=== PATIENT | female | born 1955 | race Caucasian/White ===

== ENCOUNTER 2020-05-19 06:09 | Inpatient (IN) | payer OTHER ==
[~2020-05-19] VITALS: Ht 165.1 cm; Wt 53.8 kg
[2020-05-19 06:22] VITALS: BP 125/72
[2020-05-19 07:03] LABS: CALCIUM 9.4 mg/dL (8.5-10.1); CARBON DIOXIDE 28.5 mmol/L (21-32); CHLORIDE SERUM 109 mmol/L (98-107); CREATININE SERUM 0.7 mg/dL (0.6-1.0); GFR1 > 60 mL/min; GLUCOSE SERUM 90 mg/dL (74-106); SODIUM SERUM 144 mmol/L (136-145)
[2020-05-19] MEDS ORDERED: PHARMASSURE VI500 MG PO (10:26)
[2020-05-19] MEDS ORDERED: D-10001 TAB PO (10:27)
[2020-05-19] MEDS ORDERED: ZINC50 M4 PO (10:27)
[2020-05-19 14:24] VITALS: BP 112/41
[2020-05-19 14:34] VITALS: Ht 165.1 cm; Wt 53.8 kg
[2020-05-19 15:30] VITALS: BP 105/44
[2020-05-19 16:40] VITALS: BP 124/35
[2020-05-19 17:30] VITALS: BP 113/42
[2020-05-19 19:28] VITALS: BP 108/40
[2020-05-20 04:46] VITALS: BP 81/25
[2020-05-20 07:35] LABS: BASOPHIL % 0.3 % (0-2); PLATELET COUNT 135 x10^3mcL (130-400)
[2020-05-20 07:36] LABS: CALCIUM 8.8 mg/dL (8.5-10.1); CARBON DIOXIDE 30.3 mmol/L (21-32); CHLORIDE SERUM 105 mmol/L (98-107); CREATININE SERUM 0.9 mg/dL (0.6-1.0); GFR1 > 60 mL/min; GLUCOSE SERUM 125 mg/dL (74-106); POTASSIUM SERUM 4.7 mmol/L (3.5-5.1); SODIUM SERUM 138 mmol/L (136-145)
[2020-05-20 07:37] LABS: RED CELL DISTRIBUTION WIDTH 14.8 % (11.5-14.5)
[2020-05-20 08:30] VITALS: BP 93/22
[2020-05-20 12:21] VITALS: BP 113/37
[2020-05-20 16:14] VITALS: BP 134/88
[2020-05-20 21:00] VITALS: BP 97/34
[2020-05-20 23:28] VITALS: BP 97/38
[2020-05-21 00:44] LABS: BASOPHIL % 0.1 % (0-2); PLATELET COUNT 131 x10^3mcL (130-400)
[2020-05-21 00:48] LABS: RED CELL DISTRIBUTION WIDTH 14.9 % (11.5-14.5)
[2020-05-21 02:07] VITALS: BP 147/42
[2020-05-21 05:44] VITALS: BP 114/37
[2020-05-21 07:15] LABS: BASOPHIL % 0.3 % (0-2); PLATELET COUNT 139 x10^3mcL (130-400)
[2020-05-21 07:19] LABS: CALCIUM 8.3 mg/dL (8.5-10.1); CARBON DIOXIDE 31.1 mmol/L (21-32); CHLORIDE SERUM 112 mmol/L (98-107); CREATININE SERUM 0.7 mg/dL (0.6-1.0); GFR1 > 60 mL/min; GLUCOSE SERUM 90 mg/dL (74-106); POTASSIUM SERUM 3.8 mmol/L (3.5-5.1); SODIUM SERUM 145 mmol/L (136-145)
[2020-05-21 07:42] LABS: RED CELL DISTRIBUTION WIDTH 14.8 % (11.5-14.5)
[2020-05-21 08:26] VITALS: BP 134/41
[2020-05-21 11:55] VITALS: BP 108/40
[2020-05-21 17:15] VITALS: BP 106/40
[2020-05-21 20:30] VITALS: BP 112/55
[2020-05-22 05:38] VITALS: BP 124/48
[2020-05-22 06:39] LABS: BASOPHIL % 0.5 % (0-2); PLATELET COUNT 147 x10^3mcL (130-400)
[2020-05-22 06:45] LABS: CALCIUM 8.5 mg/dL (8.5-10.1); CARBON DIOXIDE 31.1 mmol/L (21-32); CHLORIDE SERUM 109 mmol/L (98-107); CREATININE SERUM 0.7 mg/dL (0.6-1.0); GFR1 > 60 mL/min; GLUCOSE SERUM 83 mg/dL (74-106); POTASSIUM SERUM 3.8 mmol/L (3.5-5.1); SODIUM SERUM 144 mmol/L (136-145)
[2020-05-22 07:16] LABS: RED CELL DISTRIBUTION WIDTH 15.2 % (11.5-14.5)
[2020-05-22 07:55] VITALS: BP 120/51
[2020-05-22 12:31] VITALS: BP 101/43
[2020-05-22 17:01] VITALS: BP 101/43
== END 2020-05-22 18:50 | disposition home or self-care (01) | DRG 301 ==
LOC: DS 06:09 → MU 07:30 → EDSTATUS 07:30 → DS 07:30 → DU 10:38
PROVIDERS: Internal Medicine; ADMIT Orthopaedic Surgery; ATTEND Orthopaedic Surgery
PROC: 0SRB03Z Replacement of Left Hip Joint with Ceramic Synthetic Substitute, Open Approach (ICD-10-PCS; principal; 2020-05-19 07:30)
DX: M16.12 Unilateral primary osteoarthritis, left hip (principal); D64.9 Anemia, unspecified
CPT/HCPCS: 97110-GP; 97112-GP; 97530-GP; G0378; J0131; J0690; J1885; J2250; J2270; J2274; J3010; J3490; J7040; J7120; Q0092

== ENCOUNTER 2020-05-25 16:15 | Inpatient (IN) | payer OTHER ==
[~2020-05-25] VITALS: Ht 165.1 cm; Wt 55.8 kg
[~2020-05-25 16:15] MED LIST: D-10001 TAB PO; PHARMASSURE VI500 MG PO; ZINC50 M4 PO
[2020-05-25 16:41] VITALS: Ht 165.1 cm; Wt 55.8 kg
[2020-05-25 17:17] LABS: BASOPHIL % 0.4 % (0-2); PLATELET COUNT 244 x10^3mcL (130-400)
[2020-05-25 17:18] LABS: RED CELL DISTRIBUTION WIDTH 15.4 % (11.5-14.5)
[2020-05-25 17:32] LABS: CALCIUM 8.9 mg/dL (8.5-10.1); CARBON DIOXIDE 29.6 mmol/L (21-32); CHLORIDE SERUM 100 mmol/L (98-107); CREATININE SERUM 0.8 mg/dL (0.6-1.0); GFR1 > 60 mL/min; GLUCOSE SERUM 101 mg/dL (74-106); POTASSIUM SERUM 4.3 mmol/L (3.5-5.1); SODIUM SERUM 136 mmol/L (136-145)
[2020-05-25] MEDS ORDERED: ASPIRIN CHILDRE81 MG PO (19:46)
[2020-05-25] MEDS ORDERED: CELEBREX200 MG PO (19:47)
[2020-05-25] MEDS ORDERED: LYRICA75 M1 PO (19:47)
[2020-05-25 20:21] LABS: T3 TOTAL 1.13 ng/mL
[2020-05-25 20:25] LABS: FREE T4 1.08 ng/dL (0.76-1.46); FREE THYROXINE INDEX 2.8 ug/dL (1.4-4.5); T4(THYROXINE) 7.9 ug/dL (4.7-13.3)
[2020-05-25 20:47] LABS: CHOLESTEROL/HDL RATIO 3.1
[2020-05-25 21:44] VITALS: BP 115/47
[2020-05-26 05:28] VITALS: BP 108/42
[2020-05-26 07:28] LABS: CALCIUM 9.1 mg/dL (8.5-10.1); CARBON DIOXIDE 30.7 mmol/L (21-32); CHLORIDE SERUM 105 mmol/L (98-107); CREATININE SERUM 0.7 mg/dL (0.6-1.0); GFR1 > 60 mL/min; GLUCOSE SERUM 91 mg/dL (74-106); POTASSIUM SERUM 4.3 mmol/L (3.5-5.1); SODIUM SERUM 139 mmol/L (136-145)
[2020-05-26 08:00] LABS: PLATELET COUNT 219 x10^3mcL (130-400)
[2020-05-26 08:09] LABS: BASOPHIL % 0.7 % (0-2)
[2020-05-26 08:10] LABS: RED CELL DISTRIBUTION WIDTH 15.7 % (11.5-14.5)
[2020-05-26 08:29] VITALS: BP 124/66
[2020-05-26] MEDS ORDERED: HEP5I SC (09:47)
[2020-05-26] MEDS ORDERED: APAP/HYDROCODON1 T13 PO (09:48)
[2020-05-26] MEDS ORDERED: COL100 PO (09:48)
[2020-05-26 12:52] VITALS: BP 93/34
[2020-05-26 13:06] VITALS: BP 98/38
[2020-05-26 14:53] LABS: microscopic required? YES; urine erythrocyte NEGATIVE (NEGATIVE)
[2020-05-26 16:25] VITALS: BP 96/31
[2020-05-26 17:38] VITALS: BP 96/31
== END 2020-05-26 19:16 | DRG 351 ==
LOC: ED 16:15 → MU 19:16
PROVIDERS: Emergency Medicine; ADMIT Family Medicine; ATTEND Family Medicine
DX: M25.552 Pain in left hip (principal); D64.9 Anemia, unspecified; Z20.828 Contact with and (suspected) exposure to other viral communicable diseases; Z96.642 Presence of left artificial hip joint
CPT/HCPCS: 84439; G0378; J1644; Q0092; U0003-CS

== ENCOUNTER 2020-06-30 17:24 | Emergency (ER) | payer OTHER ==
[~2020-06-30] VITALS: Ht 154.9 cm; Wt 54.0 kg
[~2020-06-30 17:24] MED LIST changes: +APAP/HYDROCODON1 T13 PO; +ASPIRIN CHILDRE81 MG PO; +CELEBREX200 MG PO; +COL100 PO; +HEP5I SC; +LYRICA75 M1 PO
[2020-06-30 17:26] VITALS: Ht 154.9 cm; Wt 54.0 kg
[2020-06-30 20:33] VITALS: BP 110/52
== END 2020-06-30 20:33 | disposition home or self-care (01) ==
LOC: ED 17:24
DX: R60.0 Localized edema (principal); Z98.890 Other specified postprocedural states
CPT/HCPCS: J3010; Q0092